=== PATIENT | female | born 1975 | race Caucasian/White ===

== ENCOUNTER 2019-01-12 18:17 | Outpatient (CLI) | payer OTHER ==
--- NOTE | 2019-01-13 18:19 | MRI Report ---
Reason: ESSENTIAL PRIMARY HTN Procedure Date: 01/12/2019 Accession Number: [id number] / [id number] Procedure: MRI - Brain W/O CPT Code: FULL RESULT: EXAM: MRI BRAIN WITHOUT CONTRAST EXAM DATE: 01/12/2019 07:17 PM. CLINICAL HISTORY: Hypertension. Right-sided migraine type headaches. Headaches have increased in frequency. COMPARISON: None. TECHNIQUE: Multiplanar, multisequence T1-weighted and fluid-sensitive MR sequences of the brain were performed. Sequences optimized for routine evaluation. Other: None. IV Contrast: None. FINDINGS: No cerebellar or tonsillar ectopia is present. No abnormal restricted diffusion signal or magnetic susceptibility is identified in the brain parenchyma. Ventricles and sulci are within normal limits. No extra-axial fluid collection is present. No abnormal T2 or FLAIR hyperintensities are identified in the brain parenchyma. There is an expected flow-void in the major intracranial vessels at the skull base. No mass is present in either orbit. No mass is present in either Meckel's cave. There is an expected flow-void in the superior sagittal sinus. Left maxillary sinus mucosal thickening and retention cyst/polyp formation is noted. No abnormal T1 shortening is present in the brain parenchyma. IMPRESSION: 1. Normal noncontrast MRI of the brain. 2. Left maxillary sinus mucosal thickening and retention cyst/polyp formation. [facility]
== END 2019-01-12 18:18 | disposition home or self-care (01) ==
LOC: DI 18:17
PROVIDERS: ATTEND Registered Nurse Diabetes Educator
DX: G43.909 Migraine, unspecified, not intractable, without status migrainosus (principal); I10 Essential (primary) hypertension; J34.1 Cyst and mucocele of nose and nasal sinus; J33.8 Other polyp of sinus
CPT/HCPCS: 70551